=== PATIENT | female | born 1995 | race Two or more races ===

== ENCOUNTER 2021-07-16 10:59 | Emergency (ER) | payer MEDICAID ==
--- NOTE | 2021-07-16 11:32 | EDM.PDOC ---
ED HPI GENERAL MEDICAL PROBLEM - General Stated Complaint: COLD AND FLU S/S Time Seen by Provider: 07/16/21 11:05 Source of Information: Reports: Patient History Limitations: Reports: No Limitations - History of Present Illness INITIAL COMMENTS - FREE TEXT/NARRATIVE: Patient presented to the Ed because of cough and cold for 1 day. There is no fever, chills, N/V/D. Wants a work note. Headache Pain Score (Numeric/FACES): 4 - Related Data Allergies Allergy/AdvReac Type Severity Reaction Status Date / Time No Known Allergies Allergy Verified 07/16/21 11:26 Home Meds: Home Meds NK [No Known Home Meds] 07/16/21 [History] ED ROS GENERAL - Review of Systems Review Of Systems: See Below Constitutional: Reports: No Symptoms HEENT: Reports: No Symptoms Respiratory: Reports: Cough Cardiovascular: Reports: No Symptoms Endocrine: Reports: No Symptoms GI/Abdominal: Reports: No Symptoms : Reports: No Symptoms Musculoskeletal: Reports: No Symptoms Skin: Reports: No Symptoms Neurological: Reports: No Symptoms Psychiatric: Reports: No Symptoms Hematologic/Lymphatic: Reports: No Symptoms ED EXAM, GENERAL - Physical Exam Exam: See Below Exam Limited By: No Limitations General Appearance: Alert, No Apparent Distress Eye Exam: Bilateral Eye: PERRL Ears: Normal External Exam, Normal Canal Nose: Normal Inspection, No Blood, Nasal Swelling, Nasal Drainage Throat/Mouth: Normal Inspection, Normal Lips, Normal Teeth Head: Atraumatic, Normocephalic Neck: Normal Inspection, Supple, Non-Tender Respiratory/Chest: No Respiratory Distress, Lungs Clear, Normal Breath Sounds, No Accessory Muscle Use, Chest Non-Tender Cardiovascular: Normal Peripheral Pulses, Regular Rate, Rhythm GI/Abdominal: Normal Bowel Sounds, Soft, Non-Tender, No Organomegaly Extremities: Normal Inspection, Normal Range of Motion, Non-Tender, No Pedal Edema, Normal Capillary Refill Neurological: Alert, Oriented, CN II-XII Intact, Normal Cognition, Normal Gait, Normal Reflexes, No Motor/Sensory Deficits Course - Vital Signs Last Recorded V/S: Last Vital Signs Temp 36.9 C 07/16/21 11:01 Pulse 96 07/16/21 11:01 Resp 20 07/16/21 11:01 BP 133/88 07/16/21 11:01 Pulse Ox 97 09/28/21 11:01 Departure - Departure Time of Disposition: 11:25 Disposition: Home, Self-Care 01 Clinical Impression: URI (upper respiratory infection) - Discharge Information Instructions: Viral Respiratory Infection, [id number] Forms: ED Department Discharge Additional Instructions: Please read discharge instructions on viral URI Increase oral fluids You need to have a primary provider. The ER is no a place for clinic visits,more so to gat an excuse slip. Cough/Cold syrup as needed Follow up as needed
== END 2021-07-16 11:40 | disposition home or self-care (01) ==
LOC: FB.ED 10:59
DX: J06.9 Acute upper respiratory infection, unspecified (principal)
CPT/HCPCS: 99283

== ENCOUNTER 2021-11-12 18:41 | Emergency (ER) | payer MEDICAID | END 2021-11-12 19:15 | disposition home or self-care (01) | LOC: FB.ED 18:41 | DX: S01.81XA Laceration without foreign body of other part of head, initial encounter (principal); W20.8XXA Other cause of strike by thrown, projected or falling object, initial encounter | CPT/HCPCS: 99282 ==

== ENCOUNTER 2022-03-06 12:58 | Emergency (ER) | payer MEDICAID ==
[2022-03-06] MEDS ORDERED: Sodium Chloride 0.9% 10 ML Syringe FLUSH PRN (13:09)
[2022-03-06] MEDS ORDERED: HYDROmorphone 2 MG/ML SDV IVPUSH ONE (13:10)
== END 2022-03-06 14:53 | disposition home or self-care (01) ==
LOC: FB.ED 12:58
DX: R07.81 Pleurodynia (principal)
CPT/HCPCS: 36415; 80053; 81001; 83690; 85027; 96374; 99282; 99284-25; J1170